=== PATIENT | female | born 1985 | race Caucasian/White ===

== ENCOUNTER 2016-09-28 09:21 | Day surgery (SDC) | payer OTHER ==
[~2016-09-28] VITALS: Ht 162.6 cm; Wt 70.0 kg
[~2016-09-28 09:21] MED LIST: 0.9% Sodium Chloride 1,000 ML IV SCH; Sodium Chloride LOK Flush 10 mL Syringe IV PRN; fentaNYL-PF 50 mCg/mL 2 mL Inj IVPUSH PRN
[2016-09-28 09:41] VITALS: BP 116/72; PULSE 77; RESP 16; O2SAT 98
[2016-09-28 10:26] VITALS: BP 105/67; PULSE 67; RESP 16; O2SAT 97
[2016-09-28 10:34] VITALS: BP 104/72; PULSE 79; RESP 16; O2SAT 99
--- NOTE | 2016-09-28 18:32 | ENDO ---
[address] [address] ENDOSCOPY PROCEDURE PATIENT: PALLAVI PEREZ : 1985 MR#: [id number] ADMIT: 09/28/2016 JOB ID: [id number] DATE: 09/28/2016 PROCEDURE: Colonoscopy. INDICATION: Altered bowel habits. Patient's ASA classification is I. Mallampati score was I. MEDICATIONS: Versed 6 mg, fentanyl 125 mcg. INSTRUMENT USED: [id number] Prep quality was good. PROCEDURE DETAILS: After informed consent was obtained, the patient was brought into the GI suite, where she was placed on oxygen via nasal cannula and monitored with continuous pulse oximeter, telemetry, and blood pressure monitoring. A time-out was performed. Then, she was placed in the left lateral decubitus position and medications were administered for sedation. Digital rectal exam was performed, which was unremarkable. The colonoscope was then inserted into the rectum and advanced under direct visualization to the terminal ileum, which was identified by the presence of the ileocecal valve and villous-appearing mucosa of the terminal ileum. Once the terminal ileum was reached, the colonoscope was withdrawn back into the rectum as the mucosa and lumen were examined. In the rectum, retroflexion was performed. Following retroflexion, remaining air in the rectum was suctioned, and procedure was completed. FINDINGS: 1. Normal exam from rectum to terminal ileum. 2. Retroflexed views in the rectum revealed small internal hemorrhoids. IMPRESSION: Small internal hemorrhoids. Otherwise normal exam from rectum to cecum. RECOMMENDATIONS: 1. Follow up in GI clinic. 2. Fiber-rich diet. COMPLICATIONS: None. ESTIMATED BLOOD LOSS: Zero.
== END 2016-09-28 23:59 | disposition home or self-care (01) ==
LOC: END 09:21
PROVIDERS: ATTEND Internal Medicine Gastroenterology
DX: K64.8 Other hemorrhoids (principal); K92.1 Melena; R19.4 Change in bowel habit; R10.32 Left lower quadrant pain
CPT/HCPCS: 45378; G0500; J2250; J3010; J7030